=== PATIENT | female | born 1960 | race Caucasian/White ===

== ENCOUNTER 2016-12-11 06:22 | Day surgery (SDC) | payer OTHER ==
[2016-12-11] MEDS ORDERED: LIDOCAINE 1% 2 ML INJ ID PRN (06:58)
[2016-12-11] MEDS ORDERED: LR 1,000 ML IV ONE (06:58)
[2016-12-11 07:04] VITALS: PULSE 73
[2016-12-11] MEDS ORDERED: MIDAZOLAM 2 MG/2 ML VIAL IVP ONE (07:30)
--- NOTE | 2016-12-11 07:30 | PDANEPAE ---
ANE History of Present Illness Abnormal uterine bleeding, fibroids ANE Past Medical History - Cardiovascular History Hx Hypertension: No Hx Arrhythmias: No Hx Chest Pain: No Hx Coronary Artery / Peripheral Vascular Disease: No Hx CHF / Valvular Disease: No Hx Palpitations: No - Pulmonary History Hx COPD: No Hx Asthma/Reactive Airway Disease: No Hx Recent Upper Respiratory Infection: No Hx Oxygen in Use at Home: No Hx Sleep Apnea: No Sleep Apnea Screening Result - Last Documented: Negative - Neurologic History Hx Cerebrovascular Accident: No Hx Seizures: No Hx Dementia: No - Endocrine History Hx Diabetes: No - Renal History Hx Renal Disorders: No - Liver History Hx Hepatic Disorders: No - Neurological & Psychiatric Hx Hx Neurological and Psychiatric Disorders: No - Cancer History Hx Cancer: No - Congenital Disorder History Hx Congenital Disorders: No - GI History Hx Gastrointestinal Disorders: No - Other Health History Other Health History: ABNORMAL UTERINE BLEEDING. UTERINE FIBROIDS - Chronic Pain History Chronic Pain: No - Surgical History Prior Surgeries: RT ANKLE CYST REMVL ANE Review of Systems Review of Systems: - Exercise capacity METS (RN): 6 METS ANE Patient History - Allergies Allergies/Adverse Reactions: No Known Allergies Allergy (Unverified 11/20/16 11:14) - Home Medications Home medications: home medication list seen and reviewed Home Medications: Bcp DAILY 11/20/16 [Last Taken 12/11/16 05:30] Herbal Drugs DAILY 11/20/16 [Last Taken 12/04/16] IBUPROFEN PRN 11/20/16 [Last Taken Unknown] - NPO status NPO Since - Liquids (Date): 12/11/16 NPO Since - Liquids (Time): 05:45 NPO Since - Solids (Date): 12/10/16 NPO Since - Solids (Time): 23:00 - Anes Hx Anes Hx: no prior problems - Smoking Hx Smoking Status: Former smoker - Family Anes Hx Family Hx Anesthesia Complications: NEG ANE Labs/Vital Signs - Vital Signs Blood Pressure: 150/93 Heart Rate: 73 Respiratory Rate: 16 O2 Sat (%): 95 Height: 163.83 cm Weight: 66.224 kg ANE Physical Exam - Airway Neck exam: FROM Mallampati Score: Class 2 Mouth exam: normal dental/mouth exam - Pulmonary Pulmonary: no respiratory distress - Cardiovascular Cardiovascular: regular rate and rhythym - ASA Status ASA Status: I ANE Anesthesia Plan Anesthesia Plan: GA w LMA
[2016-12-11] MEDS ORDERED: fentaNYL 100 MCG/2 ML INJ ONE ×2 (07:43→08:58)
[2016-12-11] MEDS ORDERED: PROPOFOL 200 MG/20 ML VIAL ONE (07:43)
[2016-12-11] MEDS ORDERED: LIDOCAINE 2% 5 ML SDV ONE (07:44)
[2016-12-11] MEDS ORDERED: ONDANSETRON 4 MG/2 ML VIAL ONE (08:35)
[2016-12-11] MEDS ORDERED: DEXAMETHASONE 4 MG/ML VIAL ONE (08:35)
[2016-12-11] MEDS ORDERED: NALOXONE HCL 0.4 MG/ML INJ IVP PRN (08:36)
[2016-12-11] MEDS ORDERED: ONDANSETRON 4 MG/2 ML VIAL IVP PRN (08:36)
[2016-12-11] MEDS ORDERED: fentaNYL 100 MCG/2 ML INJ IVP PRN (08:36)
[2016-12-11] MEDS ORDERED: ACETAMINOPHEN 500 MG TAB PO PRN (08:36)
[2016-12-11] MEDS ORDERED: GLYCOPYRROLATE 0.2 MG/1 ML VIAL ONE (08:40)
[2016-12-11] MEDS ORDERED: METOCLOPRAMIDE 10 MG/2 ML VIAL ONE (08:40)
--- NOTE | 2016-12-11 09:44 | POSTANESTH ---
Post Anesthetic Evaluation Cardiovascular Status: Normal, Stable Respiratory Status: Normal, Stable Level of Consciousness/Mental Status: Can Participate in Eval Pain Control: Adequate, Prn Tx Ordered Nausea/Vomiting Control: Adequate, Prn Tx Ordered Complications Possibly Related to Anesthesia: None Noted
[2016-12-11 10:29] VITALS: TEMP 97.5
[2016-12-11 11:02] VITALS: RESP 16
--- NOTE | 2016-12-11 12:08 | GOP ---
[f rep st] OPERATIVE REPORT DATE OF OPERATION: 12/11/2016 SURGEON: Monica Stratton MD ANESTHESIA: General with LMA. ANESTHESIOLOGIST: Chase Mcdonenll MD PREOPERATIVE DIAGNOSIS: Problematic heavier menstrual cycles, despite being on control pills; noted submucosal fibroids. POSTOPERATIVE DIAGNOSIS: Problematic heavier menstrual cycles, despite being on control pills; noted submucosal fibroids, plus multiple submucosal fibroids. PROCEDURE PERFORMED: Hysteroscopic resection of fibroids. The intent was to do NovaSure ablation, b ut a perforation occurred at the time of dilation, so the ablation was not done. FINDINGS: ESTIMATED BLOOD LOSS: Minimal. DESCRIPTION OF PROCEDURE: With informed consent signed, patient was taken to the operating room and placed under general anesthesia. Then placed in the low dorsal lithotomy position and bladder previo usly emptied. Tenaculum placed on the anterior lip of the cervix. Initial dilation was very difficu lt. I was unable to even pass the 3 mm dilator, so I moved the tenaculum to the posterior edge, and uterus was noted to be planar. With that, I was able to dilate and sound the uterus up to 8 cm, and with very slow dilation, able to get up to 9 mm and then I placed the hysteroscope into the cervix. I was not able to see the tubal ostia or the fibroids, and it actually did appear to have a small win arnol that was superior, suggesting that there was a small perforation. I backed the hysteroscope out and was able to move it into the endometrium, and there I saw multiple fibroids in the endometrium. I placed the Truclear hysteroscopic morcellator into the uterine cavity, and resection of the fibroid done. Because there was a perforation, we were losing fluid, and so I tried to get as much of the f ibroid removed, and then up to 3000 was the net fluid deficit. There was very little question that t his was intravascular absorption, because there was a perforation that was probably draining into the abdomen. So resection up to 3000 cc of fluid deficit done, and this was tolerated very well. There was no active bleeding, and so the hysteroscope was removed. Patient placed in supine position, trevor kened in the operating room, and taken to the recovery room in stable condition having tolerated the procedure well. 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 She has noted heavier bleeding and intermittent midcycle bleeding. Ultrasound sonohysterogram showed several fibroids with 2 that looked very prominent in the endometrium about 2 cm, and then a 3rd cherelle t was partially submucosal. We decided to go ahead and do a hysteroscopic resection of the fibroids and then do a NovaSure ablation to improve results with the bleeding. COMPLICATIONS: Posterior wall perforation. /[id number]/MODL
[2016-12-11 16:03] VITALS: BP 138/87; O2SAT 98
== END 2016-12-11 12:25 | disposition home or self-care (01) ==
LOC: FSGY 06:22
PROVIDERS: ATTEND Obstetrics & Gynecology Gynecology
PROC: 0UC98ZZ Extirpation of Matter from Uterus, Via Natural or Artificial Opening Endoscopic (ICD-10-PCS; principal; 2016-12-11 08:00)
DX: D25.0 Submucous leiomyoma of uterus (principal); N92.0 Excessive and frequent menstruation with regular cycle; N99.71 Accidental puncture and laceration of a genitourinary system organ or structure during a genitourinary system procedure
CPT/HCPCS: 58561; C1782; J1100; J2250; J2405; J2704; J2765; J3010

== ENCOUNTER → 2016-12-26 | Outpatient (CLI) | payer OTHER ==
--- NOTE | 2016-12-11 08:21 | PDHPUP ---
History & Physical Update H&P update statement: This history and physical update is based on an assessment of the patient which was completed after admission or registration (within 24 hours), but prior to the surgery/procedure. H&P update: no change in patient's condition since H&P completed
--- NOTE | 2016-12-11 10:56 | POSTOPPROG ---
Post Op Note Date of Operation: 12/11/16 Surgeon: Monica Stratton Anesthesiologist: Dillan Mcdonnell Anesthesia: LMA Pre-op Diagnosis: fibroids , bleeding Post-op Diagnosis: same Indication: bleeding Procedure: H/S myomectomy Findings: multiple moderate sized fibroid Inf/Abcess present in the surg proc area at time of surgery?: No EBL: 50-100 Complications: perforation in the posterior aspect of the uterus
== END ==
LOC: CIMAGING 10:12
PROVIDERS: ATTEND Obstetrics & Gynecology Gynecology
DX: Z12.31 Encounter for screening mammogram for malignant neoplasm of breast (principal)
CPT/HCPCS: G0202